=== PATIENT | male | born 1980 | race Caucasian/White ===

== ENCOUNTER 2020-04-15 21:38 | Emergency (ER) | payer BC ==
[2020-04-15 21:53] VITALS: BP 140/95; PULSE 76; RESP 18; TEMP 98.1
--- NOTE | 2020-04-15 22:03 | ED ---
Lower Extremity Injury HPI - General Chief Complaint: Extremity Injury, Lower Stated Complaint: Leg swelling Time Seen by Provider: 04/15/20 21:42 Source: patient, family Mode of arrival: ambulatory Limitations: no limitations - History of Present Illness Initial Comments: 39-year-old male presenting today for chief complaint of right calf pain redness swelling that he noticed after a shower around 8-830 PM. patient states he noticed a circular area along the pain that was raised swollen and red. He states he is worried about a blood clot. Patient states he was told he is supposed to wear compression stockings. Patient denies any history of blood clots he denies any chest pain, pain with deep inspiration hemoptysis or dyspnea, hx of cancer, recent surgeries, fractures/injuries or immobilization, fevers, chills or general maliase. Patient appears well nontoxic in no acute distress. - Related Data Previous Rx's Medication Instructions Recorded Cephalexin [Keflex] 500 mg PO Q6HR 7 Days #28 cap 04/15/20 Allergies Allergy/AdvReac Type Severity Reaction Status Date / Time morphine Allergy Swelling Verified 04/15/20 22:33 Review of Systems ROS Statement: Those systems with pertinent positive or pertinent negative responses have been documented in the HPI. ROS Other: All systems not noted in ROS Statement are negative. Past Medical History Additional Past Medical History / Comment(s): meningitis, vericous veins History of Any Multi-Drug Resistant Organisms: None Reported Past Surgical History: No Surgical Hx Reported Past Psychological History: ADD/ADHD Smoking Status: Never smoker Past Alcohol Use History: None Reported Past Drug Use History: Marijuana General Exam Limitations: no limitations Course Vital Signs 04/15/20 21:47 Temperature 98.1 F Pulse Rate 76 Respiratory 18 Rate Blood Pressure 140/95 O2 Sat by Pulse 97 Oximetry Disposition Clinical Impression: Thrombophlebitis of right lower extremity Disposition: HOME SELF-CARE Condition: Good Instructions (If sedation given, give patient instructions): Superficial Thrombophlebitis (ED) Additional Instructions: Please use medication as discussed. Please follow-up with family doctor in the next 2 days. Please return to emergency room if the symptoms increase or worsen or for any other concerns. Prescriptions: Cephalexin [Keflex] 500 mg PO Q6HR 7 Days #28 cap Is patient prescribed a controlled substance at d/c from ED?: No Referrals: None,Stated [Primary Care Provider] - 1-2 days Time of Disposition: 22:40
--- NOTE | 2020-04-15 22:32 | US ---
EXAMINATION TYPE: US venous doppler duplex LE RT DATE OF EXAM: 04/15/2020 10:22 PM COMPARISON: NONE CLINICAL HISTORY: red swollen area. Redness and swelling x 2 hours. No hx of DVT. Patient does not ta ke blood thinners. SIDE PERFORMED: Right TECHNIQUE: The lower extremity deep venous system is examined utilizing real time linear array sonog mitzi with graded compression, doppler sonography and color-flow sonography. VESSELS IMAGED: Common Femoral Vein Deep Femoral Vein Greater Saphenous Vein * Femoral Vein Popliteal Vein Small Saphenous Vein * Proximal Calf Veins (* superficial vessels) Right Leg: No evidence of DVT in veins imaged at this time from prox calf veins to CFV/GSV. Scanned patient's area of concern right posterior calf. Edema visualized. No abnormalities seen at this time. IMPRESSION: No evidence of deep vein thrombosis in the right leg.
[2020-04-15] MEDS ORDERED: CEPHALEXIN 500MG STARTER PACK 4 CAP BTL PO STA (22:38)
== END 2020-04-15 22:45 | disposition home or self-care (01) ==
LOC: EC 21:38
DX: I80.3 Phlebitis and thrombophlebitis of lower extremities, unspecified (principal); Z88.5 Allergy status to narcotic agent
CPT/HCPCS: 99283

== ENCOUNTER 2021-04-08 15:05 | Emergency (ER) | payer BC ==
[2021-04-08 15:12] VITALS: TEMP 98.1
[2021-04-08 15:48] VITALS: RESP 18
[2021-04-08 16:09] VITALS: BP 139/91; PULSE 67
--- NOTE | 2021-04-08 16:10 | ED ---
General Adult HPI - General Chief complaint: Recheck/Abnormal Lab/Rx Stated complaint: Wants covid screening Time Seen by Provider: 04/08/21 15:15 Source: patient, RN notes reviewed Mode of arrival: ambulatory Limitations: no limitations - History of Present Illness Initial comments: 40-year-old male presents emergency Department with chief complaint of COVID-19 symptoms started on Monday. He states he started feeling better he states he has mild congestion otherwise no other major symptoms or chest and first breath and nausea and diarrhea constipation. Patient states work sent him here for testing. - Related Data Previous Rx's Medication Instructions Recorded Cephalexin [Keflex] 500 mg PO Q6HR 7 Days #28 cap 04/15/20 Allergies Allergy/AdvReac Type Severity Reaction Status Date / Time morphine Allergy Swelling Verified 04/08/21 15:12 Review of Systems ROS Statement: Those systems with pertinent positive or pertinent negative responses have been documented in the HPI. ROS Other: All systems not noted in ROS Statement are negative. Past Medical History Additional Past Medical History / Comment(s): meningitis, vericous veins History of Any Multi-Drug Resistant Organisms: None Reported Past Surgical History: No Surgical Hx Reported Past Psychological History: ADD/ADHD Smoking Status: Never smoker Past Alcohol Use History: None Reported Past Drug Use History: Marijuana General Exam Limitations: no limitations General appearance: alert, in no apparent distress Head exam: Present: atraumatic, normocephalic, normal inspection Eye exam: Present: normal appearance, PERRL, EOMI. Absent: scleral icterus, conjunctival injection, periorbital swelling ENT exam: Present: normal exam, normal oropharynx, mucous membranes moist Neck exam: Present: normal inspection, full ROM. Absent: tenderness, meningismus, lymphadenopathy Respiratory exam: Present: normal lung sounds bilaterally. Absent: respiratory distress, wheezes, rales, rhonchi, stridor Cardiovascular Exam: Present: regular rate, normal rhythm, normal heart sounds. Absent: systolic murmur, diastolic murmur, rubs, gallop, clicks Course Vital Signs 04/08/21 04/08/21 15:08 15:45 Temperature 98.1 F Pulse Rate 107 H Respiratory 15 18 Rate Blood Pressure 133/94 O2 Sat by Pulse 96 Oximetry Medical Decision Making - Medical Decision Making Patient has COVID-19 will be discharged in stable condition return parameters were discussed. - Lab Data Lab Results 04/08/21 Range/Units 15:13 Coronavirus (PCR) Detected A (Not Detectd) Disposition Clinical Impression: COVID-19 Disposition: HOME SELF-CARE Condition: Stable Instructions (If sedation given, give patient instructions): Coronavirus D isease 2019 (COVID-19) Additional Instructions: Please return to the Emergency Department if symptoms worsen or any other concerns. Is patient prescribed a controlled substance at d/c from ED?: No Referrals: None,Stated [Primary Care Provider] - 1-2 days Time of Disposition: 16:09
== END 2021-04-08 16:18 | disposition home or self-care (01) ==
LOC: EC 15:05
DX: U07.1 COVID-19 (principal); F90.9 Attention-deficit hyperactivity disorder, unspecified type; F12.90 Cannabis use, unspecified, uncomplicated; Z88.5 Allergy status to narcotic agent
CPT/HCPCS: 87635; 99283

== ENCOUNTER 2021-04-17 15:04 | Emergency (ER) | payer BC ==
--- NOTE | 2021-04-17 15:12 | ED ---
General Adult HPI - General Chief complaint: Recheck/Abnormal Lab/Rx Stated complaint: covid test Time Seen by Provider: 04/17/21 15:06 Source: patient, RN notes reviewed Mode of arrival: ambulatory Limitations: no limitations - History of Present Illness Initial comments: 32-year-old male presents emergency Department with chief complaint of needing COVID 19 testing. Patient was +9 days ago. Patient has no symptoms states that his work is required to have repeat test. Patient denies any fevers chills cough congestion shortness breath has been diarrhea constipation. - Related Data Previous Rx's Medication Instructions Recorded Cephalexin [Keflex] 500 mg PO Q6HR 7 Days #28 cap 04/15/20 Allergies Allergy/AdvReac Type Severity Reaction Status Date / Time morphine Allergy Swelling Verified 04/17/21 15:10 Review of Systems ROS Statement: Those systems with pertinent positive or pertinent negative responses have been documented in the HPI. ROS Other: All systems not noted in ROS Statement are negative. Past Medical History Additional Past Medical History / Comment(s): meningitis, vericous veins History of Any Multi-Drug Resistant Organisms: None Reported Past Surgical History: No Surgical Hx Reported Past Psychological History: ADD/ADHD Smoking Status: Never smoker Past Alcohol Use History: None Reported Past Drug Use History: Marijuana General Exam Limitations: no limitations General appearance: alert, in no apparent distress Head exam: Present: atraumatic, normocephalic, normal inspection Eye exam: Present: normal appearance, PERRL, EOMI. Absent: scleral icterus, conjunctival injection, periorbital swelling ENT exam: Present: normal exam, normal oropharynx, mucous membranes moist Neck exam: Present: normal inspection, full ROM. Absent: tenderness, meningismus, lymphadenopathy Respiratory exam: Present: normal lung sounds bilaterally. Absent: respiratory distress, wheezes, rales, rhonchi, stridor Course Vital Signs 04/17/21 15:08 Temperature 97.1 F L Pulse Rate 88 Respiratory 18 Rate Blood Pressure 125/86 O2 Sat by Pulse 96 Oximetry Disposition Clinical Impression: Encounter for laboratory testing for COVID-19 virus Disposition: HOME SELF-CARE Condition: Stable Additional Instructions: Please return to the Emergency Department if symptoms worsen or any other concerns. Is patient prescribed a controlled substance at d/c from ED?: No Referrals: None,Stated [Primary Care Provider] - 1-2 days Time of Disposition: 15:12
[2021-04-17 15:13] VITALS: BP 125/86; PULSE 88; RESP 18; TEMP 97.1
== END 2021-04-17 16:07 | disposition home or self-care (01) ==
LOC: EC 15:04
DX: Z20.822 Contact with and (suspected) exposure to COVID-19 (principal); F90.9 Attention-deficit hyperactivity disorder, unspecified type; F12.90 Cannabis use, unspecified, uncomplicated; Z88.5 Allergy status to narcotic agent
CPT/HCPCS: 87635; 99282